=== PATIENT | male | born 1945 | race Caucasian/White ===

== ENCOUNTER → 2016-07-02 | Outpatient (CLI) | payer MEDICARE, BC ==
--- NOTE | 2016-07-09 11:00 | OR ---
ADMIT: 07/02/2016 RM/LOC: [facility] MR#: [id number] [id number] [place], [place] [id number] [address] [place] [address] Operative/Delivery Room Report SEX: M AGE: 70 : 1945 SURGERY DATE: 07/02/2016 SURGEON: Fransisco Aaron MD PREOPERATIVE DIAGNOSIS: Left hip arthritis. POSTOPERATIVE DIAGNOSIS: Left hip arthritis. PROCEDURE PERFORMED: Left fluoroscopic-guided hip injection. INDICATION: Heraclio has got left hip pain. I have been treating him for trochanteric bursitis and not getting better. Got an MRI. Looked for a tear in the abductors, there was none but he did have some moderate arthritis, so we are going to try an injection in his hip joint and see if that gets rid of his pain to see if this is just coming from his arthritis. DESCRIPTION OF PROCEDURE: He was identified in the fluoroscopy suite. A written consent was obtained and confirmed. Did a little time out and then brought the x-ray in. After prepping him in the usual sterile fashion, brought a needle in under fluoroscopic guidance intra-articularly. Injected solution of 8 mL of lidocaine 2%, and 2 mL of Kenalog 40 mg/mL. That went in nice and easy intra-articularly. Then cleaned him up, put a Band-Aid on. I will see him back in about six weeks. Have him really pay attention to how much relief that got him to give us kind of diagnostic information. Fransisco Aaron MD/ vdg JOB #: [id number] CC: Fransisco Aaron, Attending Physician Calvin Beck, Family Physician
== END | disposition home or self-care (01) ==
LOC: RAD.S 09:00
PROC: 0S9B3ZZ Drainage of Left Hip Joint, Percutaneous Approach (ICD-10-PCS; principal; 2016-07-02)
DX: M70.72 Other bursitis of hip, left hip (principal)